=== PATIENT | female | born 1980 | race Caucasian/White ===

== ENCOUNTER 2019-09-26 18:15 | Emergency (ER) | payer OTHER, SELFPAY ==
--- NOTE | ~2019-09-26 | XR_ITS ---
EXAMINATION: XR abdomen obstructive series DATE: 09/26/2019 19:39 INDICATION: Constipation for 7 days. TECHNIQUE: Supine and upright views of the abdomen. FINDINGS: No prior studies for comparison. The visualized lung parenchyma is normal.. There is a nonobstructive bowel gas pattern. Gas and stool are seen throughout the colon to the level of the rectum. There is no free air. Moderate colonic fe matteo loading. IMPRESSION: 1. No acute abdominal abnormality. Reviewed, dictated and finalized at location A. [employer]
[2019-09-26 19:00] VITALS: BP 158/89; PULSE 75; RESP 18; TEMP 36.7; O2SAT 100
[2019-09-26 19:21] LABS: Appearance Urine Clear (Clear); Bilirubin Urine Negative (Negative); Color Urine Yellow (Yellow); Glucose Urine UA Negative (Negative); Ketones Urine Negative (Negative); Leukocyte Esterase Ur Negative (Negative); Nitrate Urine Negative (Negative); Protein Urine Negative (Negative); Specific Grav Ur 1.015 (1.010-1.020); Urobilinogen Urine 0.2 mg/dL (0.2-1.0); pH Urine 6.5 (5.0-8.0)
[2019-09-26 19:25] LABS: Add Urine Microscopic? YES; Bacteria Urine Trace /hpf; Blood Urine Trace (Negative); RBC Urine 0-2 /hpf (0-2); Squamous Epithelial Cell Urine Rare /hpf (Few); WBC Urine 0-3 /hpf (0-3)
[2019-09-26 19:43] LABS: Alanine Aminotransferase 32 U/L (14-59); Albumin Level 4.1 g/dL (3.4-5.0); Alkaline Phosphatase 80 U/L (46-116); Anion Gap 13.1 mmol/L (7-16); Aspartate Amino Transferase 28 U/L (15-37); Bilirubin,Total 0.3 mg/dL (0.00-1.00); Blood Urea Nitrogen 15 mg/dL (7-18); Calcium 8.9 mg/dL (8.5-10.1); Carbon Dioxide 29 mmol/L (21-32); Chloride 103 mmol/L (98-108); Estimated CRCL calculation 111 ml/min; Estimated Glomerular Filt Rate > 60; Glucose 96 mg/dL (70-99); Osmolality Calculated 292 mOsm/kg (285-295); Potassium 4.1 mmol/L (3.5-5.1); Sodium 141 mmol/L (136-145); Total Protein 7.8 g/dL (6.4-8.2)
--- NOTE | 2019-09-26 20:03 | ED.ABDPAIN ---
HPI - Abdominal Pain General Chief Complaint: Abdominal Pain Stated Complaint: r side pain, possible constipation History of Present Illness HPI narrative: 39-year-old female who presents with constipation over the last week, with the current we mild abdominal discomfort with no nausea vomiting no chest pain or shortness of breath no fever or chills. The patient is a known hypothyroid and he has been out of her thyroid medication. MD elicited complaint: abdominal pain Pertinent past history: constipation Onset (ago): week(s) Pain Consistency: constant Location: diffuse Severity: mild Quality: fullness Radiation: none Migration to: no migration Exacerbating factors: eating Relieving factors: nothing Associated symptoms: denies other symptoms Related Data Allergies Allergy/AdvReac Type Severity Reaction Status Date / Time No Known Allergies Allergy Unknown Verified 09/25/19 14:20 Review of Systems Review of Systems: All systems reviewed & are unremarkable except as noted in HPI and below PMFSH Past Medical History Medical History Breast lump Cellulitis of trunk Foot pain Hypothyroidism Obesity, Class III, BMI 40-49.9 (morbid obesity) Surgical History Surgical History H/O tubal ligation History of tonsillectomy Social History Social History Smoking packs per day: 0.25 Smoking cigarettes per day: 5.0 Years smoked: 10 Smoking pack-years: 2.50 Smoking status: Current every day smoker Alcohol intake: current Substance use: never Substance use type: does not use 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 Gender identity (if verbalized by the patient): Female Exam Const: General: no acute distress and alert Orientation/consciousness: patient oriented x3 HENMT: Head: normal to inspection Eyes: Conjunctivae: conjunctivae normal Pupils: Equal, round and reactive pupils present Neck: Neck: normal visual inspection Resp: Effort & Inspection: normal respiratory effort Auscultation: clear to auscultation bilaterally Cardio: Rate: regular rate Rhythm: regular rhythm GI: GI Palp: Yes Soft to palpation and Yes Tenderness to palpation present (GI) Skin: General skin exam: normal color Rashes: no rashes Neuro: General: patient oriented x3 Extrem: General: normal to inspection Psych: Mental Status: mental status grossly normal Course Vital Signs Vital signs: Vital Signs Temperature 36.7 C 09/26/19 19:00 Pulse Rate 75 09/26/19 19:00 Respiratory Rate 18 09/26/19 19:00 Blood Pressure 158/89 H 09/26/19 19:00 Pulse Oximetry 100 09/26/19 19:00 Temperature 36.7 C 09/26/19 19:00 Pulse Rate 75 09/26/19 19:00 Respiratory Rate 18 09/26/19 19:00 Blood Pressure 158/89 H 09/26/19 19:00 Pulse Oximetry 100 09/26/19 19:00 MDM - Abdominal Pain Lab Data Result diagrams: 09/26/19 19:16 Labs: Lab Results 09/26/19 09/26/19 Range/Units 19:12 19:16 Sodium 141 (136-145) mmol/L Potassium 4.1 (3.5-5.1) mmol/L Chloride 103 (98-108) mmol/L Carbon Dioxide 29 (21-32) mmol/L Anion Gap 13.1 (7-16) mmol/L BUN 15 (7-18) mg/dL Creatinine 0.96 (0.55-1.02) mg/dL Estim Creat Clear Calc 111 ml/min Estimated GFR > 60 (59 - ) Glucose 96 (70-99) mg/dL Calculated Osmolality 292 (285-295) mOsm/kg Calcium 8.9 (8.5-10.1) mg/dL Total Bilirubin 0.3 (0.00-1.00) mg/dL AST 28 (15-37) U/L ALT 32 (14-59) U/L Alkaline Phosphatase 80 (46-116) U/L Total Protein 7.8 (6.4-8.2) g/dL Albumin 4.1 (3.4-5.0) g/dL TSH Pending Urine Color Yellow (Yellow) Urine Appearance Clear (Clear) Urine pH 6.5 (5.0-8.0) Ur Specific [place] 1.015 (1.010-1.020) Urine Protein Negative (Negative) Urine Glucose (U
[2019-09-26 20:16] LABS: Thyroid Stimulating Hormone > 96.00 uIU/mL (0.36-3.74)
[2019-09-26 21:07] VITALS: PULSE 67; O2SAT 99
[2019-09-26] MEDS: LEVOTHYROXINE SODIUM 100 MCG, LEVOTHYROXINE SODIUM 50 MCG 150 MCG PO (21:07)
== END 2019-09-26 21:08 | disposition home or self-care (01) ==
PROVIDERS: Emergency Provider Emergency Medicine; PCP Nurse Practitioner Family
DX: K59.00 Constipation, unspecified (principal); E03.9 Hypothyroidism, unspecified
CPT/HCPCS: 36415; 74019; 80053; 81001; 84443; 99283; A9270

== ENCOUNTER 2020-11-12 12:52 | Emergency (ER) | payer OTHER, SELFPAY ==
[2020-11-12 13:19] VITALS: BP 149/83; PULSE 80; RESP 20; TEMP 36.7; O2SAT 99
--- NOTE | 2020-11-12 13:19 | ED.WOUNDLAC ---
HPI - Wound/Laceration General Chief Complaint: Wound/Laceration Stated Complaint: cut hand between pinky and ring finger Source: patient Mode of arrival: ambulatory Limitations: no limitations History of Present Illness HPI narrative: this is a 40-year-old female that was in her kitchen earlier this morning and reaching into the trash can there was a piece of glass that cut the webbing of her left hand between the 4th and 5th finger mildly gaping with currently no bleeding patient is up-to-date with her tetanus. Onset (ago): hour(s) Extremity Location: Left: hand ( Laceration between the webbing of the 4th and 5th finger) Place: home Patient tetanus UTD: Yes Context: accidental Associated symptoms: none Related Data Allergies Allergy/AdvReac Type Severity Reaction Status Date / Time No Known Allergies Allergy Unknown Verified 11/12/20 13:18 Review of Systems Review of Systems: All systems reviewed & are unremarkable except as noted in HPI and below PMFSH Past Medical History Medical History (Updated 11/12/20 @ 13:23 by Michael Meza MD) Breast lump Cellulitis of trunk Foot pain Hypothyroidism Obesity, Class III, BMI 40-49.9 (morbid obesity) Surgical History Surgical History H/O tubal ligation History of tonsillectomy Social History Social History Smoking packs per day: 0.25 Smoking cigarettes per day: 5.0 Years smoked: 10 Smoking pack-years: 2.50 Smoking status: Current every day smoker Alcohol intake: current Substance use: never Substance use type: does not use 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 Gender identity (if verbalized by the patient): Female Exam Const: General: no acute distress and alert Orientation/consciousness: patient oriented x3 HENMT: Head: normal to inspection Eyes: Conjunctivae: conjunctivae normal Pupils: Equal, round and reactive pupils present EOM: EOMs intact bilaterally Neck: Neck: normal visual inspection and no lymphadenopathy Chest: Chest palpation & inspection: normal inspection of the chest Resp: Effort & Inspection: normal respiratory effort Auscultation: clear to auscultation bilaterally Cardio: Rate: regular rate Rhythm: regular rhythm GI: GI Palp: Yes Soft to palpation Skin: General skin exam: normal color Rashes: no rashes Other: About 1.5 cm mildly gaping laceration webbing between the 4th and 5th finger on her left hand with currently no bleeding Extrem: General: normal to inspection and no pedal edema Psych: Mental Status: mental status grossly normal Course Course Emergency Course: patient is up-to-date with her tetanus put Dermabond on to the the laceration and the patient tolerated procedure well. Procedures Laceration Laceration 1: Date: 11/12/20 Time: 13:22 Site: hand ( 1.5cm laceration between the webbing of her 4th and 5th finger of her left hand) Side (If applicable): left Size (cm): 1.5 Description: linear Pre-repair: irrigated ====== Skin Level ====== Skin layer closed with: dermabond ====== Subcutaneous Layer ====== ====== Muscle Layer ====== ====== Tendon Layer ====== Critical Care Time Critical Care Time Critical Care Time: No Discharge Plan Discharge Clinical Impression: Laceration Patient Disposition: Home, Self-Care Condition: Stable Instructions: Antibiotic Form, Laceration (ED) Additional Instructions: advised to pete tape the fingers of the 4th and 5th finger on the left and follow with primary care physician if symptoms persist or worsen. Prescriptions: No Action levothyroxine 150 mcg tablet 150 mcg PO DAILY Qty: 30 RF: 2 Follow-up/Referrals: Tayler English CLINICAL NURSE SPECIALIST [Primary Care Provider] - Time of Disposition: 13:23
[2020-11-12 13:27] VITALS: BP 148/85; PULSE 81; RESP 20; TEMP 36.7; O2SAT 98
== END 2020-11-12 13:41 | disposition home or self-care (01) ==
PROVIDERS: Emergency Provider Emergency Medicine; PCP Nurse Practitioner Family
DX: S61.412A Laceration without foreign body of left hand, initial encounter (principal); W25.XXXA Contact with sharp glass, initial encounter
CPT/HCPCS: 12001; 99282

== ENCOUNTER 2022-06-01 15:50 | Emergency (ER) | payer OTHER, SELFPAY ==
--- NOTE | ~2022-06-01 | CT_ITS ---
EXAMINATION: CT abdomen pelvis w con DATE: 06/01/2022 17:54 INDICATION: RUQ abdominal pain TECHNIQUE: Computed tomography (CT) of the abdomen and pelvis was performed eeeeeeeeeee intravenous c ontrast. Automated exposure control and iterative reconstruction technique were employed. The dose-le ngth product was 1534.65 mGy-cm. COMPARISON: None. FINDINGS: Lower thorax: Unremarkable Liver: Ill-defined, indeterminate 1.4 cm hypodensities in the right and left liver lobes. Somewhat he terogeneous areas of liver parenchymal enhancement which may be related to focal fatty infiltration a nd others probably related to artifact. Biliary/Gallbladder: Gallbladder is normal. No bile duct dilation. Pancreas: No mass or duct dilation. Spleen: Normal. Adrenals:No mass. Kidneys: No mass, stone, or hydronephrosis. GI tract: No small or large bowel dilation. Normal appendix. Mesentery/Peritoneum: No ascites, mass, or free air. Retroperitoneum: No mass. Pelvis: 8.4 cm and 6.1 cm simple appearing right ovarian cysts. 1.9 cm left ovarian cyst or dominant follicle. Remaining organs are within normal limits. Soft Tissues: Soft tissues and body wall unremarkable. Bones: No acute osseous finding. IMPRESSION: No acute abdominopelvic process detected. Indeterminate liver lesions, recommend outpatient MR of the liver for further characterization. 8.4 cm and 6.1 cm simple appearing right ovarian cysts, recommen d outpatient pelvic ultrasound and gynecology referral. Reviewed, dictated and finalized at location K. IMPRESSION: No acute abdominopelvic process detected. Indeterminate liver lesions, recommen d outpatient MR of the liver for further characterization. 8.4 cm and 6.1 cm si mple appearing right ovarian cysts, recommend outpatient pelvic ultrasound and gynecology referral.
[2022-06-01 15:53] VITALS: BP 128/104; PULSE 90; RESP 20; TEMP 36.5; O2SAT 98
--- NOTE | 2022-06-01 16:02 | ED.ABDPAIN ---
HPI - Abdominal Pain General Chief Complaint: Abdominal Pain Stated Complaint: Abdominal pain goes around to back Related Data Allergies Allergy/AdvReac Type Severity Reaction Status Date / Time No Known Allergies Allergy Unknown Verified 04/01/21 14:57 [facility] Past Medical History Medical History (Updated 06/01/22 @ 18:16 by Js Pabon MD) Breast lump Cellulitis of trunk Foot pain Hypothyroidism Obesity, Class III, BMI 40-49.9 (morbid obesity) Surgical History Surgical History H/O tubal ligation History of tonsillectomy Social History Social History Smoking packs per day: 0.25 Smoking cigarettes per day: 5.0 Years smoked: 10 Smoking pack-years: 2.50 Smoking status: Current every day smoker Alcohol intake: current Alcohol use details: once a month Substance use: never Substance use type: does not use 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 Vital Signs Vital signs: Vital Signs Temperature 36.5 C 06/01/22 15:53 Pulse Rate 90 06/01/22 15:53 Respiratory Rate 20 06/01/22 15:53 Blood Pressure 128/104 H 06/01/22 15:53 Pulse Oximetry 98 06/01/22 15:53 Oxygen Delivery Room Air 06/01/22 15:53 Temperature 36.5 C 06/01/22 15:53 Pulse Rate 116 H 06/01/22 18:03 Respiratory Rate 20 06/01/22 18:03 Blood Pressure 137/92 H 06/01/22 18:03 Pulse Oximetry 100 06/01/22 18:03 Oxygen Delivery Room Air 06/01/22 18:03 MDM - Abdominal Pain MDM Narrative Medical decision making narrative: Right upper quadrant abdominal pain ovarian cysts liver hypodensities Differential Diagnosis Differential diagnosis: Likely calculus of kidney Medical Records Attestation: I reviewed the patient's medical records. Lab Data Attestation: I reviewed the patient's lab results. Result diagrams: 06/01/22 16:16 06/01/22 16:16 Labs: Lab Results 06/01/22 06/01/22 06/01/22 Range/Units 16:16 16:16 16:16 WBC 10.7 (4.8-10.8) K/mm3 RBC 4.03 L (4.20-5.40) M/mm3 Hgb 11.5 L (12.0-15.0) g/dL Hct 36.5 (35.0-49.0) % MCV 90.6 (78.0-102.0) fL MCH 28.5 (27.0-31.0) pg MCHC 31.5 L (32.0-36.0) g/dL RDW 16.1 H (11.6-14.4) % Plt Count 456 H (150-420) K/mm3 MPV 9.2 (9.2-11.8) fl Immature Gran % (Auto) 1.4 H (0.0-0.0) % Neut % (Auto) 62.8 (50.0-70.0) % Lymph % (Auto) 25.2 (18.0-42.0) % [place] % (Auto) 6.2 (2.0-11.0) % Eos % (Auto) 3.2 (1.0-6.0) % Baso % (Auto) 1.2 H (0.0-1.0) % Lymph # (Auto) 2.69 (1.10-4.50) K/mm3 [place] # (Auto) 0.66 (0.10-0.90) K/mm3 Eos # (Auto) 0.34 (0.02-0.50) K/mm3 Baso # (Auto) 0.13 H (0.00-0.10) K/mm3 Abs Immat Gran (auto) 0.15 H (0.00-0.00) K/mm3 Absolute Neuts (auto) 6.7 (1.7-7.2) K/mm3 Absolute Nucleated RBC 0.00 (0.00-0.00) K/mm3 Nucleated RBC % 0.0 (0-0.0) % PT 10.7 (9.50-12.10) Seconds INR 1.0 APTT 41.8 H (23.90-30.70) SEC Sodium 138 (136-145) mmol/L Potassium 3.8 (3.5-5.1) mmol/L Chloride 102 (98-108) mmol/L Carbon Dioxide 28 (21-32) mmol/L Anion Gap 8 (8-16) mmol/L BUN 10 (7-18) mg/dL Creatinine 1.01 (0.55-1.02) mg/dL Estim Creat Clear Calc 106 ml/min Estimated GFR 60 (59 - ) Glucose 123 H (70-99) mg/dL Calculated Osmolality 286 (285-295) mOsm/kg Lactic Acid (0.4-2.0) mmol/L Calcium 8.5 (8.5-10.1) mg/dL Total Bilirubin 0.3 (0.00-1.00) mg/dL AST 22 (15-37) U/L ALT 26 (14-59) U/L Alkaline Phosphatase 76 (46-116) U/L Troponin I 4.7 (0.00-60.4) ng/L Total Protein 7.2 (6.4-8.2) g/dL Albumin 3.9 (3.4-5.0) g/dL Lipase
--- NOTE | 2022-06-01 16:08 | ECG_ITS ---
Measurements Intervals [place] Rate: 76 P: 49 WI: 186 QRS: 30 QRSD: 103 T: 36 QT: 385 QTc: 435 Interpretive Statements SINUS RHYTHM NORMAL ELECTROCARDIOGRAM NO PREVIOUS ECG AVAILABLE FOR COMPARISON Electronically Signed On 06-03-2022 13:59:46 CDT by Michael Hernandez M.D.
[2022-06-01] MEDS: HYDROmorphone HCL INJ (*CRX) 2 MG/ML VIAL 0.5 MG IV PUSH (16:21)
[2022-06-01] MEDS: ONDANSETRON INJ 4 MG/2 ML VIAL IV PUSH (16:21)
[2022-06-01] MEDS: LACTATED RINGERS 1,000 ML 999 ML IV CONT (16:23)
[2022-06-01 16:26] LABS: Basophils Absolute Auto 0.13 K/mm3 (0.00-0.10); Basophils Percent Auto 1.2 % (0.0-1.0); Eosinophils Absolute Auto 0.34 K/mm3 (0.02-0.50); Eosinophils Percent Auto 3.2 % (1.0-6.0); Hematocrit 36.5 % (35.0-49.0); Hemoglobin 11.5 g/dL (12.0-15.0); Immature Granulocyte Absolute 0.15 K/mm3 (0.00-0.00); Immature Granulocyte Percent A 1.4 % (0.0-0.0); Lymphocytes Absolute Auto 2.69 K/mm3 (1.10-4.50); Lymphocytes Percent Auto 25.2 % (18.0-42.0); Mean Corpuscular HGB Conc 31.5 g/dL (32.0-36.0); Mean Corpuscular Hemoglobin 28.5 pg (27.0-31.0); Mean Corpuscular Volume 90.6 fL (78.0-102.0); Mean Platelet Volume 9.2 fl (9.2-11.8); Monocytes Absolute Auto 0.66 K/mm3 (0.10-0.90); Monocytes Percent Auto 6.2 % (2.0-11.0); Neutrophils Absolute Auto 6.7 K/mm3 (1.7-7.2); Neutrophils Percent Auto 62.8 % (50.0-70.0); Platelet Count Result 456 K/mm3 (150-420); Red Blood Count 4.03 M/mm3 (4.20-5.40); Red Cell Distribution Width 16.1 % (11.6-14.4); White Blood Count 10.7 K/mm3 (4.8-10.8)
[2022-06-01 16:53] LABS: Lactic Acid Reflex 1.9 mmol/L (0.4-2.0)
[2022-06-01 16:54] LABS: Partial Thromboplastin Time 41.8 SEC (23.90-30.70); Prothrombin Time 10.7 Seconds (9.50-12.10)
[2022-06-01 16:58] LABS: Anion Gap 8 mmol/L (8-16); Blood Urea Nitrogen 10 mg/dL (7-18); Carbon Dioxide 28 mmol/L (21-32); Chloride 102 mmol/L (98-108); Estimated CRCL calculation 106 ml/min; Estimated Glomerular Filt Rate 60; Glucose 123 mg/dL (70-99); Osmolality Calculated 286 mOsm/kg (285-295); Potassium 3.8 mmol/L (3.5-5.1); Sodium 138 mmol/L (136-145)
[2022-06-01 16:59] LABS: Alanine Aminotransferase 26 U/L (14-59); Albumin Level 3.9 g/dL (3.4-5.0); Alkaline Phosphatase 76 U/L (46-116); Aspartate Amino Transferase 22 U/L (15-37); Bilirubin,Total 0.3 mg/dL (0.00-1.00); Calcium 8.5 mg/dL (8.5-10.1); Lipase 93 U/L (73-393); Total Protein 7.2 g/dL (6.4-8.2); Troponin I 4.7 ng/L (0.00-60.4)
[2022-06-01 17:36] LABS: Appearance Urine Clear (Clear); Bilirubin Urine Negative (Negative); Glucose Urine UA Negative (Negative); Ketones Urine Negative (Negative); Leukocyte Esterase Ur Negative (Negative); Nitrate Urine Negative (Negative); Protein Urine Negative (Negative); Urobilinogen Urine 0.2 mg/dL (0.2-1.0); pH Urine 7.5 (5.0-8.0)
[2022-06-01 17:43] LABS: Add Urine Microscopic? YES; Bacteria Urine Trace /hpf; Blood Urine Trace-Intact (Negative); Color Urine Light Yellow (Yellow); RBC Urine 0-2 /hpf (0-2); Squamous Epithelial Cell Urine Few /hpf (Few); WBC Urine 0-3 /hpf (0-3)
[2022-06-01 18:03] VITALS: BP 137/92; PULSE 116; RESP 20; O2SAT 100
[2022-06-01 18:24] VITALS: BP 131/76; PULSE 61; RESP 20; TEMP 36.5; O2SAT 97
--- NOTE | 2022-06-07 04:05 | ED.ABDPAIN ---
HPI - Abdominal Pain General Chief Complaint: Abdominal Pain Stated Complaint: Abdominal pain goes around to back Source: patient History of Present Illness HPI narrative: 41-year-old female presented to the ER with a 7 day history of -- right upper quadrant abdominal pain radiating to the back.. No exacerbating or relieving factors. No nausea/ vomiting. No fever. status post bilateral tubal ligation MD elicited complaint: abdominal pain Pertinent past history: none Onset (ago): day(s) ( Started 7 days ago) Pain Consistency: constant Location: RUQ Severity: moderate Quality: aching Radiation: back Exacerbating factors: nothing Relieving factors: nothing Related Data Allergies Allergy/AdvReac Type Severity Reaction Status Date / Time No Known Allergies Allergy Unknown Verified 04/01/21 14:57 Review of Systems Review of Systems: All systems reviewed & are unremarkable except as noted in HPI and below Constitutional: Constitutional: Reports as per HPI and Reports no additional constitutional complaints Eyes: Eyes: Reports as per HPI and Reports no additional eye complaints ENT: Reports system reviewed and no additional complaints, except as documented and Reports as per HPI Cardiovascular: Cardiovascular: Reports as per HPI and Reports no additional cardiovascular complaints Respiratory: Respiratory: Reports as per HPI and Reports no additional respiratory complaints Gastrointestinal: Gastrointestinal: Reports as per HPI, Reports no additional gastrointestinal complaints and Reports abdominal pain Genitourinary: Genitourinary: Reports no additional female genitourinary complaints Musculoskeletal: Musculoskeletal: Reports no additional musculoskeletal complaints and Reports as per HPI Integumentary/Breasts: Skin/Breast: Reports system reviewed and no additional complaints, except as docu and Reports as per HPI Neurologic: Reports system reviewed and no additional complaints, except as documented and Reports as per HPI Psychiatric: Psychiatric: Reports no additional psychiatric complaints and Reports as per HPI Endocrine: Endocrine: Reports no additional endocrine complaints and Reports as per HPI Hematologic/Lymphatic: Hematologic/Lymphatic: Reports no additional hematologic/lymphatic complaints and Reports as per HPI Allergic/Immunologic: Allergic/Immunologic: Reports no additional allergic/immunologic complaints and Reports as per HPI PMFSH Past Medical History Medical History Breast lump Cellulitis of trunk Foot pain Hypothyroidism Obesity, Class III, BMI 40-49.9 (morbid obesity) Surgical History Surgical History H/O tubal ligation History of tonsillectomy Social History Social History Smoking packs per day: 0.25 Smoking cigarettes per day: 5.0 Years smoked: 10 Smoking pack-years: 2.50 Smoking status: Current every day smoker Alcohol intake: current Alcohol use details: once a month Substance use: never Substance use type: does not use 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 Gender identity (if verbalized by the patient): Female Exam Const: General: no acute distress Orientation/consciousness: patient oriented x3 Limitations: no limitations HENMT: Head: normal to inspection Ears: external ears normal Face/Nose/Sinus: Normal external nose present Face and sinus: normal facial exam Mouth: Yes Normal oral and palatal mucosa present Teeth and gingiva: dentition normal Throat: posterior oropharynx normal Eyes: Conjunctivae: conjunctivae normal Pupils: Equal, round and reactive pupils present EOM: EOMs intact bilaterally Direct Ophthalmoscopy: no photophobia Neck: Neck: normal visual inspection, no lymphadenopathy and no meningeal signs Chest: Chest palpation & inspection: normal inspe
== END 2022-06-01 18:32 | disposition home or self-care (01) ==
PROVIDERS: Emergency Provider Internal Medicine Critical Care Medicine; PCP Nurse Practitioner Family
DX: R10.10 Upper abdominal pain, unspecified (principal); N83.201 Unspecified ovarian cyst, right side
CPT/HCPCS: 36415; 74177; 80053; 81001; 83605; 83690; 84484; 85025; 85610; 85730; 93005; 96361; 96374; 96375; 99284; J1170; J2405; J7120; Q9967

== ENCOUNTER 2023-04-18 16:13 | Outpatient (CLI) | payer OTHER, SELFPAY ==
[2023-04-18 16:32] LABS: Basophils Absolute Auto 0.12 K/mm3 (0.00-0.10); Basophils Percent Auto 1.3 % (0.0-1.0); Eosinophils Absolute Auto 0.35 K/mm3 (0.02-0.50); Eosinophils Percent Auto 3.8 % (1.0-6.0); Hematocrit 36.4 % (35.0-49.0); Hemoglobin 11.7 g/dL (12.0-15.0); Immature Granulocyte Absolute 0.14 K/mm3 (0.00-0.00); Immature Granulocyte Percent A 1.5 % (0.0-0.0); Lymphocytes Absolute Auto 2.39 K/mm3 (1.10-4.50); Lymphocytes Percent Auto 25.9 % (18.0-42.0); Mean Corpuscular HGB Conc 32.1 g/dL (32.0-36.0); Mean Corpuscular Hemoglobin 29.6 pg (27.0-31.0); Mean Corpuscular Volume 92.2 fL (78.0-102.0); Monocytes Absolute Auto 0.64 K/mm3 (0.10-0.90); Monocytes Percent Auto 6.9 % (2.0-11.0); Neutrophils Absolute Auto 5.6 K/mm3 (1.7-7.2); Neutrophils Percent Auto 60.6 % (50.0-70.0); Platelet Count Result 424 K/mm3 (150-420); Red Blood Count 3.95 M/mm3 (4.20-5.40); Red Cell Distribution Width 17.7 % (11.6-14.4); White Blood Count 9.2 K/mm3 (4.8-10.8)
[2023-04-18 17:02] LABS: Hemoglobin A1C 5.6 % (<5.7)
[2023-04-18 17:11] LABS: Alanine Aminotransferase 37 U/L (14-59); Albumin Level 4.2 g/dL (3.4-5.0); Alkaline Phosphatase 78 U/L (46-116); Anion Gap 8 mmol/L (8-16); Aspartate Amino Transferase 42 U/L (15-37); Bilirubin,Total 0.5 mg/dL (0.00-1.00); Blood Urea Nitrogen 14 mg/dL (7-18); Calcium 8.7 mg/dL (8.5-10.1); Carbon Dioxide 31 mmol/L (21-32); Chloride 102 mmol/L (98-108); Estimated Glomerular Filt Rate 53; Glucose 90 mg/dL (70-99); HDL Direct 44 mg/dL (40-60); Osmolality Calculated 292 mOsm/kg (285-295); Potassium 4.3 mmol/L (3.5-5.1); Sodium 141 mmol/L (136-145); Total Protein 7.3 g/dL (6.4-8.2); Triglycerides 156 mg/dL (0-150)
[2023-04-18 17:16] LABS: Thyroid Stimulating Hormone > 96.00 uIU/mL (0.36-3.74)
[2023-04-18 17:37] LABS: Cholesterol 263 mg/dL (0-200); LDL Cholesterol Calculated 188 mg/dL (<130)
[2023-04-21 20:04] LABS: T4 Thyroxine <0.7 mcg/dL (5.9-10.3)
== END 2023-04-18 16:14 | disposition home or self-care (01) ==
PROVIDERS: PCP Nurse Practitioner Family; Visit Provider Nurse Practitioner Family
DX: R60.0 Localized edema (principal); R53.83 Other fatigue; E03.9 Hypothyroidism, unspecified; E66.01 Morbid (severe) obesity due to excess calories
CPT/HCPCS: 36415; 80053; 80061; 83036; 84436; 84443; 85025

== ENCOUNTER 2023-05-02 08:30 | Outpatient (CLI) | payer OTHER, SELFPAY ==
--- NOTE | ~2023-05-02 | US_ITS ---
EXAMINATION: US abdomen complete DATE: 05/02/2023 09:06 INDICATION: Elevated liver enzymes TECHNIQUE: Multiple grayscale and Doppler ultrasound images of the abdomen were obtained. COMPARISON: CT dated 06/01/2022 FINDINGS: Abdominal aorta is normal in caliber measuring approximately 3.1 cm proximally and 2.4 cm in the mid and distal aorta. The pancreatic head and body are normal in appearance. The pancreatic tail is not visualized. Liver has normal contour, with a smooth surface. There is increased parenchymal echogenic ity and coarsened echotexture consistent with diffuse hepatic steatosis. No liver lesion identified. No intrahepatic biliary duct dilation suspected. Portal venous flow was seen in the hepatopetal, nor mal direction and has normal Doppler waveform. The gallbladder is normal in appearance. There is no cholelithiasis. The common bile duct measures 3 mm, which is normal. Sonographic Pope sign was repo rted as negative by the cabana attendant. There is normal renal contour and echogenicity bilaterally. The right kidney measures 11.3 x 5.4 x 5.7 cm and the left 11.4 x 5.1 x 6.1 cm. There are no focal renal lesions identified. There is no hydronephrosis. Normal spleen measuring 10.5 cm maximal length. IMPRESSION: 1. Diffuse hepatic steatosis. Otherwise normal abdominal ultrasound. Reviewed, dictated and finalized at location A.
--- NOTE | ~2023-05-02 | US_ITS ---
EXAMINATION: US thyroid DATE: 05/02/2023 09:05 INDICATION: Hypothyroidism TECHNIQUE: Multiple ultrasound images of the thyroid were obtained. COMPARISON: None. FINDINGS: The right thyroid lobe measures 2.4 x 1.0 x 1.2 cm. And appears heterogeneously hypoechoic with coars ened echotexture and without discrete nodules. The left thyroid lobe measures 2.3 x 1.0 x 1.0 and zoie ears comprised almost entirely of 2 solid wider than tall hypoechoic nodules with smooth margins and without internal echogenic foci (TI-RADS 4, moderately suspicious , FNA if >=1.5 cm, annual followup is >=1 cm), the larger measuring 10 mm in maximal diameter. The thyroid isthmus measures 5 mm in thic kness. IMPRESSION: 1. Small thyroid with heterogeneous echogenicity and coarsened echotexture which could represent sequ sarah of chronic thyroiditis. 2. A couple TI RADS 4 left thyroid nodules, the larger measuring up to 1 cm for which annual follow-u p is recommended. Reviewed, dictated and finalized at location A. IMPRESSION: 1. Small thyroid with heterogeneous echogenicity and coarsened echotexture whic h could represent sequela of chronic thyroiditis. 2. A couple TI RADS 4 left thyroid nodules, the larger measuring up to 1 cm for which annual follow-up is recommended.
== END 2023-05-02 08:31 | disposition home or self-care (01) ==
LOC: CHSIMG 08:31
PROVIDERS: PCP Nurse Practitioner Family; Visit Provider Nurse Practitioner Family
DX: E03.9 Hypothyroidism, unspecified (principal); E78.5 Hyperlipidemia, unspecified; K76.0 Fatty (change of) liver, not elsewhere classified; E04.2 Nontoxic multinodular goiter; E07.89 Other specified disorders of thyroid
CPT/HCPCS: 76536; 76700

== ENCOUNTER 2023-08-29 17:16 | Emergency (ER) | payer SELFPAY ==
[2023-08-29 17:52] VITALS: BP 153/99; PULSE 82; RESP 16; TEMP 36.1; O2SAT 99
--- NOTE | 2023-08-29 20:35 | PC.NURSE ---
patient left from waiting room without being seen. advised to return if needed. verbalized understanding. my ride won't wait any longer
== END 2023-08-29 20:43 | disposition left against medical advice (07) ==
LOC: ANHED 20:39
PROVIDERS: PCP Nurse Practitioner Family
DX: R19.7 Diarrhea, unspecified (principal)
CPT/HCPCS: 99199

== ENCOUNTER 2023-08-30 16:42 | Outpatient (CLI) | payer OTHER, SELFPAY ==
[2023-08-30 17:05] LABS: Basophils Percent Auto 0.7 % (0.0-1.0); Eosinophils Absolute Auto 0.33 K/mm3 (0.02-0.50); Eosinophils Percent Auto 2.3 % (1.0-6.0); Hematocrit 37.1 % (35.0-49.0); Hemoglobin 11.7 g/dL (12.0-15.0); Immature Granulocyte Absolute 0.14 K/mm3 (0.00-0.00); Lymphocytes Absolute Auto 2.23 K/mm3 (1.10-4.50); Lymphocytes Percent Auto 15.8 % (18.0-42.0); Mean Corpuscular HGB Conc 31.5 g/dL (32.0-36.0); Mean Corpuscular Hemoglobin 28.1 pg (27.0-31.0); Mean Corpuscular Volume 89.2 fL (78.0-102.0); Monocytes Absolute Auto 0.98 K/mm3 (0.10-0.90); Monocytes Percent Auto 6.9 % (2.0-11.0); Neutrophils Absolute Auto 10.3 K/mm3 (1.7-7.2); Neutrophils Percent Auto 73.3 % (50.0-70.0); Occult Blood Positive (Negative); Platelet Count Result 476 K/mm3 (150-420); Red Blood Count 4.16 M/mm3 (4.20-5.40); White Blood Count 14.1 K/mm3 (4.8-10.8)
[2023-08-30 17:18] LABS: Prothrombin Time 10.7 Seconds (9.50-12.10)
[2023-08-30 18:22] LABS: Alanine Aminotransferase 33 U/L (14-59); Albumin Level 4.1 g/dL (3.4-5.0); Alkaline Phosphatase 85 U/L (46-116); Anion Gap 7 mmol/L (8-16); Aspartate Amino Transferase 24 U/L (15-37); Bilirubin,Total 0.7 mg/dL (0.00-1.00); Blood Urea Nitrogen 10 mg/dL (7-18); CRP 4.6 mg/dL (0.0-0.9); Calcium 8.7 mg/dL (8.5-10.1); Carbon Dioxide 32 mmol/L (21-32); Chloride 101 mmol/L (98-108); Estimated Glomerular Filt Rate 54; Glucose 102 mg/dL (70-99); Osmolality Calculated 289 mOsm/kg (285-295); Potassium 4.3 mmol/L (3.5-5.1); Sodium 140 mmol/L (136-145); Total Protein 7.3 g/dL (6.4-8.2)
== END 2023-08-30 16:43 | disposition home or self-care (01) ==
LOC: CHSLAB 16:43
PROVIDERS: PCP Nurse Practitioner Family; Visit Provider Nurse Practitioner Family
DX: K92.1 Melena (principal)
CPT/HCPCS: 36415; 80053; 82272; 85025; 85610; 86140; 87177; 87209

== ENCOUNTER 2023-08-31 08:27 | Outpatient (CLI) | payer OTHER, SELFPAY ==
[2023-09-07 18:27] LABS: Calprotectin, Stool 784 mcg/g
== END 2023-08-31 08:28 | disposition home or self-care (01) ==
LOC: CHSLAB 08:28
PROVIDERS: PCP Nurse Practitioner Family; Visit Provider Nurse Practitioner Family
DX: K92.1 Melena (principal)
CPT/HCPCS: 83993; 87045; 87427; 87449; 87493

== ENCOUNTER 2024-04-10 20:26 | Emergency (ER) | payer MEDICAID, SELFPAY ==
--- NOTE | 2024-04-10 20:29 | ED.FEMALEGU ---
HPI - Female Genitourinary General Chief complaint: Urogenital-Female Stated complaint: cloudy urine Time Seen by Provider: 04/10/24 20:29 Source: patient Mode of arrival: ambulatory Limitations: no limitations History of Present Illness HPI Narrative: 43-year-old female with a history of hypothyroidism presents to the ER with 3 history of -- dysuria any hematuria. foul smelling urine no fever or chills. No flank pain MD elicited complaint: dysuria and UTI Onset (ago): day(s) ( 3 days) Severity: mild Urinary symptoms: Dysuria, Urgency, Frequency and Foul Smelling Urine Exacerbating factors: none Relieving factors: none Associated symptoms: denies other symptoms Patient : No Related Data Allergies Allergy/AdvReac Type Severity Reaction Status Date / Time No Known Allergies Allergy Unknown Verified 04/10/24 20:29 Review of Systems Review of Systems: All systems reviewed & are unremarkable except as noted in HPI and below Constitutional: Constitutional: Reports no additional constitutional complaints Eyes: Eyes: Reports as per HPI and Reports no additional eye complaints ENT: Reports system reviewed and no additional complaints, except as documented and Reports as per HPI Cardiovascular: Cardiovascular: Reports as per HPI and Reports no additional cardiovascular complaints Respiratory: Respiratory: Reports as per HPI and Reports no additional respiratory complaints Gastrointestinal: Gastrointestinal: Reports as per HPI and Reports no additional gastrointestinal complaints Genitourinary: Genitourinary: Reports no additional female genitourinary complaints, Reports as per HPI, Reports nocturia and Reports dysuria Musculoskeletal: Musculoskeletal: Reports no additional musculoskeletal complaints and Reports as per HPI Integumentary/Breasts: Skin/Breast: Reports system reviewed and no additional complaints, except as docu Neurologic: Reports system reviewed and no additional complaints, except as documented and Reports as per HPI Psychiatric: Psychiatric: Reports no additional psychiatric complaints and Reports as per HPI Endocrine: Endocrine: Reports no additional endocrine complaints and Reports as per HPI Hematologic/Lymphatic: Hematologic/Lymphatic: Reports no additional hematologic/lymphatic complaints and Reports as per HPI Allergic/Immunologic: Allergic/Immunologic: Reports no additional allergic/immunologic complaints and Reports as per HPI PMFSH Past Medical History Medical History Breast lump Cellulitis of trunk Foot pain Hypothyroidism Obesity, Class III, BMI 40-49.9 (morbid obesity) Surgical History Surgical History H/O tubal ligation History of removal of ovarian cyst History of tonsillectomy Social History Social History Smoking packs per day: 0.25 Smoking cigarettes per day: 5.0 Years smoked: 10 Smoking pack-years: 2.50 Smoking status: Former smoker Alcohol intake: current Alcohol use details: once a month Substance use: never Substance use type: does not use Lack of Transportation: No Lack of Food: Never True Current Housing: I Have Housing Concerned About Future Housing: No Difficulty Paying Gas/Electric Bills: No Difficulty Paying for Meds: No Currently Unemployed: No Education: Trade/Vocational Certificate Difficulty w/ Childcare or Family Care: No Living arrangements: with family Occupation/Education: occupation 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
[2024-04-10 20:30] VITALS: BP 124/79; PULSE 71; RESP 18; TEMP 36.1; O2SAT 98
--- NOTE | 2024-04-10 20:30 | PC.NURSE ---
pt escorted to bathroom for urine sample
[2024-04-10 20:41] LABS: Add Urine Microscopic? YES; Appearance Urine Sl Cloudy (Clear); Bilirubin Urine Negative (Negative); Blood Urine 3+ (Negative); Color Urine Light Yellow (Yellow); Glucose Urine UA Negative (Negative); Ketones Urine Negative (Negative); Leukocyte Esterase Ur 1+ LEU/UL (Negative); Nitrate Urine Negative (Negative); Protein Urine 1+ (Negative); Urobilinogen Urine 0.2 mg/dL (0.2-1.0); pH Urine 6.5 (5.0-8.0)
[2024-04-10 20:45] LABS: Squamous Epithelial Cell Urine Few /hpf (Few); WBC Urine 16-20 /hpf (0-3)
[2024-04-10 20:46] LABS: Bacteria Urine 2+ /hpf
[2024-04-10] MEDS: CIPROFLOXACIN 500 MG TAB PO (21:02)
--- NOTE | 2024-04-14 17:58 | PC.NURSE ---
FINAL URINE CULTURE REPORT: PROTEUS MIRABILIS, PATIENT DISCHARGED ON CIPRO, CULTURE SUSCEPTIBLE, NO FURTHER ACTION OR TREATMENT NEEDED.
== END 2024-04-10 21:06 | disposition home or self-care (01) ==
LOC: CHSED 21:00
PROVIDERS: Emergency Provider Internal Medicine Critical Care Medicine; PCP Nurse Practitioner Family
DX: N30.00 Acute cystitis without hematuria (principal); E03.9 Hypothyroidism, unspecified; Z87.891 Personal history of nicotine dependence
CPT/HCPCS: 81001; 87077; 87086; 87088; 87186; 99283; A9270

== ENCOUNTER 2024-05-13 09:35 | Emergency (ER) | payer OTHER, SELFPAY ==
--- NOTE | 2024-05-13 09:37 | ED.GENADULT ---
HPI - General Adult General Chief complaint: Upper Respiratory Infection Stated complaint: Sinus Infection Symptoms/Stomach Pain Time Seen by Provider: 05/13/24 09:59 Source: patient, RN notes reviewed and old records reviewed Mode of arrival: ambulatory Limitations: no limitations History of Present Illness HPI narrative: 43-year-old female presents to the [facility] with decreased hearing bilaterally for approximately 1 week. States she was also concerned that she found blood on her pillow that she believes came from her left ear Reports intermittent sinus congestion Reports that she uses Flonase and Claritin Related Data Allergies Allergy/AdvReac Type Severity Reaction Status Date / Time No Known Allergies Allergy Unknown Verified 05/13/24 09:48 Review of Systems Review of Systems: All systems reviewed & are unremarkable except as noted in HPI and below Constitutional: Constitutional: Reports no additional constitutional complaints Eyes: Eyes: Reports no additional eye complaints ENT: Reports as per HPI Cardiovascular: Cardiovascular: Reports no additional cardiovascular complaints, Denies chest pain and Denies dyspnea Respiratory: Respiratory: Reports no additional respiratory complaints, Denies chest congestion, Denies cough and Denies dyspnea Gastrointestinal: Gastrointestinal: Reports no additional gastrointestinal complaints, Denies abdominal pain, Denies nausea and Denies vomiting Musculoskeletal: Musculoskeletal: Reports no additional musculoskeletal complaints Integumentary/Breasts: Skin/Breast: Reports system reviewed and no additional complaints, except as docu Neurologic: Reports system reviewed and no additional complaints, except as documented Psychiatric: Psychiatric: Reports no additional psychiatric complaints Allergic/Immunologic: Allergic/Immunologic: Reports no additional allergic/immunologic complaints PMFSH Past Medical History Medical History Breast lump Cellulitis of trunk Foot pain Hypothyroidism Obesity, Class III, BMI 40-49.9 (morbid obesity) Surgical History Surgical History H/O tubal ligation History of removal of ovarian cyst History of tonsillectomy Social History Social History Smoking packs per day: 0.25 Smoking cigarettes per day: 5.0 Years smoked: 10 Smoking pack-years: 2.50 Smoking status: Former smoker Alcohol intake: current Alcohol use details: once a month Substance use: never Substance use type: does not use Lack of Transportation: No Lack of Food: Never True Current Housing: I Have Housing Concerned About Future Housing: No Difficulty Paying Gas/Electric Bills: No Difficulty Paying for Meds: No Currently Unemployed: No Education: Trade/Vocational Certificate Difficulty w/ Childcare or Family Care: No Living arrangements: with family Occupation/Education: occupation 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 There is no relevant family history pertinent to the patient complaint. Exam Const: General: cooperative, healthy appearing, comfortable, no acute distress, well developed, alert and well nourished Nutritional Appearance: well nourished Orientation/consciousness: patient oriented x3 Limitations: no limitations HENMT: Head: normal to inspection Ears: hearing grossly normal bilaterally, external ears normal, Abnormal EAC present other (Dry blood noted to the base of the ear canal left) and TM abnormal with fluid behind the TM (Serous) bilateral Face/Nose/Sinus: Normal external nose present, Normal nares present, Normal nasal mucous membranes and turbinates pres
[2024-05-13 09:51] VITALS: BP 121/75; PULSE 83; RESP 16; TEMP 36.5; O2SAT 100
== END 2024-05-13 10:21 | disposition home or self-care (01) ==
PROVIDERS: Emergency Provider Nurse Practitioner
DX: H65.03 Acute serous otitis media, bilateral (principal); S00.412A Abrasion of left ear, initial encounter; E03.9 Hypothyroidism, unspecified; E66.9 Obesity, unspecified; Z68.41 Body mass index [BMI] 40.0-44.9, adult; Z87.891 Personal history of nicotine dependence
CPT/HCPCS: 99213; G0463

== ENCOUNTER 2025-05-31 10:57 | Outpatient (CLI) | payer OTHER, SELFPAY ==
--- OUTSIDE RECORDS SUMMARY | 2025-05-31 11:00 | XMS_ITS | Patient Health Record ---
Author Organization [facility] Address [address] [place], [place] [id number] Care Team Providers Care Pocket Setter Lockstitch Name Role Phone NIA ESCOBAR Unavailable [phone] Bonifacio Quiros Unavailable Unavailable Reason For Referral No Information Plan Of Treatment No Information Insurance Providers Payer Name Payer Address Payer Phone Subscriber Number Group Number Insured Name Patient Relationship to Insured Coverage Start Date Coverage End Date [facility] [address] [address] [place] [address] [id number] ROSALINA RITTER Self - patient is the insured
--- OUTSIDE RECORDS SUMMARY | 2025-05-31 11:00 | XMS_ITS | Clinical Summary ---
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 2 Active hydrOXYzine (VISTARIL) 25 MG capsuleIndicati ons:Hydrosalpin x Take 1-2 capsules (25-50 mg total) by mouth 4 (four) times daily as needed for Itching or Anxiety (insomnia, nausea or pain). May substitute tabs and or any form of hydroxyzine 30 capsule 2 2 Active doxycycline hyclate (VIBRA-TABS) 100 MG tabletIndicatio ns:Hydrosalpinx Take 1 tablet (100 mg total) by mouth 2 (two) times daily. 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 Gender Identity Not on file Sexual Orientation Not on file Last Filed Vital Signs Vital Sign Reading Time Taken Comments Blood Pressure 153/86 06/06/2022 10:23 PM CDT Pulse 73 06/06/2022 10:23 PM CDT Temperature 36.4 C (97.5 F) 06/06/2022 10:23 PM CDT Respiratory Rate 19 06/06/2022 10:23 PM CDT Oxygen Saturation 97% 06/06/2022 10:23 PM CDT Inhaled Oxygen Concentration - - Weight 148 kg (326 lb 4.5 oz) 06/06/2022 12:16 P M CDT Height 182.9 cm (6') 06/06/2022 12:16 PM CDT Body Mass Index 44.25 06/06/2022 12:16 PM CDT Plan of Treatment Health Maintenance Due Date Last Done Comments Cervical Cancer Screening Pa p Smear (Age 30 to 64) Every 3 Years 1980 Annual Physical 1983 Hepatitis C 1998 DTaP, Tdap and Td Vaccines ( 1 - Tdap) 1999 Hepatitis B Vaccines (1 of 3 - 19+ 3-dose series) 1999 Pneumococcal Vaccine: Pediat rics (0 to 5 Years) and At-Risk Patients (6 to 49 Years) (1 of 2 - PCV) 1999 HPV Vaccines (1 - 3-dose SCD M series) 2007 Cervical Cancer Screening Pa p with HPV Testing (Age 30 to 64) Every 5 Years 2010 Cervical Cancer Screening with HPV 2010 Mammogram Screening 2020 COVID-19 Vaccine (2023-2 5 season) 2025 Meningococcal B Vaccine Aged Out No l onger eligible based on patient's age to complete this topic Meningococcal Vaccine Aged Out No leidy gregor eligible based on patient's age to complete this topic RSV Immunizations Under 20 Months Aged Out No longer eligible based on patient's age to complete this topic Insurance [facility] MEDICAID Advance Directives * Full Code (Latest Code Status on File) Date Activated Date Inactivated Comments 06/06/2022 9:57 PM 06/07/2022 12:45 AM Care Teams Boat Designer Relationship Specialty Start Date End Date None, Provider, PCP - General 06/06/22
[2025-05-31 13:25] LABS: Free T4 Free Thyroxine Reflex 0.08 ng/dL (0.78-2.19); Thyroid Stimulating Hormone Reflex > 100.000 uIU/mL (0.465-4.68)
== END 2025-05-31 10:58 | disposition home or self-care (01) ==
LOC: CHSLAB 10:58
PROVIDERS: PCP Nurse Practitioner Family; Visit Provider Nurse Practitioner Family
DX: E03.9 Hypothyroidism, unspecified (principal)
CPT/HCPCS: 36415; 84439; 84443; 86376